=== PATIENT | female | born 1955 | race Two or more races ===

== ENCOUNTER 2022-08-13 06:59 | Day surgery (SDC) | payer OTHER ==
[2022-08-13] VITALS (7 sets, daily range): BP systolic 111–152; BP diastolic 70–89
[~2022-08-13] VITALS: Ht 152.4 cm; Wt 59.9 kg
[~2022-08-13 06:59] MED LIST: ASCO500T11 PO; CHOL1CAP59 PO; ENTE1TAB12 PO; LEVO112T4 PO; RIFA150C3 PO; TACR1CAP19 PO; URSO300C9 PO; ZINC50TA7 PO
[2022-08-13] MEDS ORDERED: LIDOCAINE VISCOUS 2% 15ML UD PO ONE (08:00)
[2022-08-13] MEDS: MIDAZOLAM HCL 2MG/2ML 2ml VIAL (1mg/ml) IV ONE (08:42)
[2022-08-13] MEDS: fentaNYL CITRATE 100 MCG/2 ML VL IV ONE (08:42)
== END 2022-08-13 10:10 | disposition home or self-care (01) ==
LOC: CATH 06:59
PROVIDERS: ATTEND Internal Medicine
DX: I08.0 Rheumatic disorders of both mitral and aortic valves (principal); I70.0 Atherosclerosis of aorta; Z20.822 Contact with and (suspected) exposure to COVID-19
CPT/HCPCS: 93312; J2250; J3010; J7030; U0003; 99152